=== PATIENT | female | born 1960 | race Caucasian/White ===

== ENCOUNTER 2018-12-17 13:44 | Outpatient (CLI) | payer OTHER ==
[~2018-12-17] VITALS: Ht 152.4 cm; Wt 98.9 kg
--- NOTE | 2018-12-17 22:00 | Consultation ---
DATE OF CONSULTATION: 12/17/2018 CONSULTING PHYSICIAN: Morgan Reis M.D. CHIEF COMPLAINT: Evaluation for bariatric surgery. PAST MEDICAL HISTORY: 1. Hypertension. 2. Morbid obesity. 3. Peptic ulcer disease. 4. Gout. 5. GERD. 6. Hypercholesterolemia. ALLERGIES: No known drug allergies. MEDICATIONS: Please see medication reconciliation list. SOCIAL HISTORY: The patient denies any tobacco usage. Drinks only socially. No IV drug abuse. FAMILY HISTORY: Significant for diabetes and hypertension. Sister had breast cancer. PAST SURGICAL HISTORY: Sleeve gastrectomy in 2010, cholecystectomy in 2016. REVIEW OF SYSTEMS: A 10-point review of systems was performed. Pertinent positives are in HPI. PHYSICAL EXAMINATION: VITAL SIGNS: Temperature 97.6, pulse is 78, respirations 20, and blood pressure is 117/60. HEENT: Normocephalic and atraumatic. Sclerae anicteric. NECK: Supple. No evidence of obvious lymphadenopathy. CARDIOVASCULAR: Regular rate and rhythm. Plus S1 and S2. No obvious murmur. LUNGS: Clear to auscultation bilaterally. ABDOMEN: Positive bowel sounds. Soft, nontender. No rebound. No guarding. No peritoneal sign. EXTREMITIES: No cyanosis. No clubbing. No edema. ASSESSMENT AND PLAN: This is a 58-year-old female with history of sleeve gastrectomy, needs revision. Plan is to do an endoscopy as soon as authorization is approved. The patient was given instruction for endoscopy for [facility] and we will schedule her as soon as the authorization is approved. Morgan Reis M.D. DR: Kay JOB#: [id number] CC:
[2018-12-18] MEDS ORDERED: ALLOPURINOL100 M1 ORAL (07:30)
[2018-12-18] MEDS ORDERED: LISINOPRIL40 MG ORAL (07:30)
[2018-12-18] MEDS ORDERED: ASPIRIN EC81 MG ORAL (07:30)
[2018-12-18] MEDS ORDERED: ATORVASTATIN CA20 MG ORAL (07:30)
[2018-12-18] MEDS ORDERED: OMEPRAZOLE20 M2 ORAL (07:30)
[2018-12-18] MEDS ORDERED: HYDROCHLOROTH12.5 M2 ORAL (07:30)
[2018-12-18] MEDS ORDERED: TRAMADOL HCL50 MG ORAL (07:30)
[2018-12-18 07:31] VITALS: BP 117/60
== END 2018-12-17 15:44 | disposition home or self-care (01) ==
LOC: PAN 13:44
DX: Z01.818 Encounter for other preprocedural examination (principal); Z98.84 Bariatric surgery status; I10 Essential (primary) hypertension; E66.01 Morbid (severe) obesity due to excess calories; Z87.11 Personal history of peptic ulcer disease; K21.9 Gastro-esophageal reflux disease without esophagitis; E78.00 Pure hypercholesterolemia, unspecified; E11.9 Type 2 diabetes mellitus without complications; Z90.49 Acquired absence of other specified parts of digestive tract; Z68.41 Body mass index [BMI] 40.0-44.9, adult
CPT/HCPCS: 99202